=== PATIENT | female | born 1940 ===

== ENCOUNTER 2017-07-04 11:29 | Emergency (ER) | payer OTHER, MEDICARE, MEDICAID ==
[2017-07-04 11:42] VITALS: BMI 23.8
[2017-07-04 11:47] VITALS: BP 123/74; PULSE 77; RESP 18; TEMP 98; O2SAT 100
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
== END 2017-07-04 15:31 | disposition home or self-care (01) ==
LOC: C.ER 11:29
DX: G93.89 Other specified disorders of brain (principal); V09.3XXA Pedestrian injured in unspecified traffic accident, initial encounter; Y92.410 Unspecified street and highway as the place of occurrence of the external cause